=== PATIENT | female | born 1955 | race Caucasian/White ===

== ENCOUNTER → 2017-01-08 | Outpatient (CLI) | payer OTHER ==
--- NOTE | 2017-01-09 09:38 | MRI ---
EXAM DESCRIPTION: MRI left knee CLINICAL HISTORY: Left knee pain. Medial knee pain. No known injury COMPARISON: None. TECHNIQUE: Multiplanar, multisequence MR images of the left knee FINDINGS: Diffuse edema throughout the medial femoral condyle. High-grade chondrosis, grade 3 and grade 4 over the majority of the weightbearing condyle. Fluid in contact with the subchondral cortex along the mid to anterior joint over at least 14 x 8 mm. There is subtle irregularity of the subchondral cortex with minimal trabecular condensation over a small region about 8-9 mm. The appearance is compatible with stress/insufficiency fracture versus early sequela of osteonecrosis. Greater degree of marrow edema than typically seen from grade 4 chondrosis alone. Chondral thinning over the tibia without full-thickness defect or subchondral marrow abnormality. No medial meniscal tear A small defect in the superior articular surface mid body lateral meniscus seen on coronal PD fat sat image 19. Remainder of the lateral meniscus normal. A chondral fissure over the posterior weightbearing lateral condyle over about 5 x 2 mm. No subchondral marrow abnormality. Lateral tibial cartilage intact Chondral thinning and irregularity along the lower apex and lateral facet patella and the apex of the lower trochlea and medial facet without full-thickness defect or subchondral marrow abnormality Thickening of the anterior cruciate ligament with intraligamentous signal. Small osseous cysts at the tibial attachment. Appearance consistent with prior remote low-grade interstitial partial tear and intraligamentous ganglion formation. PCL, MCL and fibular collateral ligament are intact Biceps femoris, popliteus and iliotibial band tendons are normal. Patellar and quadriceps tendons and tendons of the posterior medial knee are intact Moderate joint effusion. No intra-articular loose body IMPRESSION: Abnormal medial femoral condyle with chondrosis and subchondral bony abnormality as well as diffuse marrow edema. The appearance is compatible with sequela of a small segment of osteonecrosis versus stress/insufficiency subcortical fracture Small defect/tear superior articular surface mid body lateral meniscus Electronically signed by: Zechariah Harris MD 01/09/2017 9:38 AM CDT
== END | disposition home or self-care (01) ==
LOC: MRI 08:46
PROVIDERS: ATTEND Family Medicine
DX: M25.562 Pain in left knee (principal)

== ENCOUNTER → 2017-01-20 | Outpatient (CLI) | payer OTHER ==
--- NOTE | 2017-01-20 10:38 | RAD ---
EXAM DESCRIPTION: Pelvis CLINICAL HISTORY: 61 years, Female, HIP PAIN COMPARISON: None. FINDINGS: Pelvic ring is intact. Mild degenerative narrowing of both hips more on the left. Sacroiliac degenerative change present on the left. IMPRESSION: Mild degenerative change in both hips, more on the left. No fracture. Electronically signed by: Guy Chan MD 01/20/2017 10:38 AM CDT
== END | disposition home or self-care (01) ==
LOC: RAD 07:43
PROVIDERS: ATTEND Orthopaedic Surgery
DX: M25.552 Pain in left hip (principal)

== ENCOUNTER 2017-10-12 13:03 | Emergency (ER) | payer BC, OTHER ==
--- NOTE | 2017-10-12 13:47 | ED.PDOC ---
History of Present Illness - General Stated Complaint: ABDOMINAL PAIN Time Seen by Provider: 10/12/17 13:44 Source: patient Additional Information: 62 YEAR OLD HERE WITH COMPLAINTS OF EPIGASTRIC PAIN LAST 3 DAYS INTERMITTANT SHE HAS LOSS OF APATITE NO NAUSEA VOMITING OR DIARRHEA SHE HAS BEEN TREATED BY HER PCP FOR RESPIRATORY SYMPTOMS LAS T WEEK - History of Present Illness Timing/Duration: intermittent Severity: moderate Worsening Factors: nothing Associated Symptoms: denies symptoms, loss of appetite Allergies/Adverse Reactions: Allergies NO KNOWN ALLERGY Allergy (Verified 12/14/15 09:29) Home Medications: Ambulatory Orders Dapagliflozin-Metformin HCl [Xigduo Xr 10-1000 mg] 1 tab PO DAILY 12/15/15 Review of Systems - Review of Systems Constitutional: States: no symptoms reported EENTM: States: no symptoms reported Respiratory: States: no symptoms reported Cardiology: States: no symptoms reported Gastrointestinal/Abdominal: States: see HPI Genitourinary: States: no symptoms reported Musculoskeletal: States: no symptoms reported Skin: States: no symptoms reported Neurological: States: no symptoms reported Endocrine: States: no symptoms reported Past Medical History (General) - Patient Medical History Hx Congestive Heart Failure: No Hx Diabetes: Yes - FSBS 137 AT 1300 Family Medical History - Family History Mother Family History: Unknown Living Status: Unknown Physical Exam - Physical Exam General Appearance: Alert, Comfortable Eye Exam: bilateral normal Ears, Nose, Throat: hearing grossly normal, normal ENT inspection, normal pharynx Neck: non-tender, full range of motion, supple Respiratory: chest non-tender, lungs clear, normal breath sounds, no respiratory distress, no accessory muscle use Cardiovascular/Chest: normal peripheral pulses, regular rate, rhythm, no edema, no gallop, no JVD, no murmur Peripheral Pulses: radial,right: 2+, radial,left: 2+, femoral,right: 2+, femoral ,left: 2+ Gastrointestinal/Abdominal: normal bowel sounds, non tender, soft, no organomegaly, no pulsatile mass Back Exam: normal inspection, no CVA tenderness Neurologic: flask pusher II-XII nml as tested, no motor/sensory deficits, alert Departure - Departure Clinical Impression: Abdominal pain, Pancreatitis Time of Disposition: 16:32 Disposition: Transfer to Hospital Condition: Good Referrals: Zechariah Branch MD [Primary Care Provider] - 1-2 Weeks Home Medications: Ambulatory Orders Dapagliflozin-Metformin HCl [Xigduo Xr 10-1000 mg] 1 tab PO DAILY 12/15/15 Transfer to Outside Facility - Transfer Information Accepting Provider:: [facility] DR ERICKSON Accepting Facility: [facility] - ACUTE PANCREATITIS TYPE II DM ACUTE KIDENY INJURY Reason for Transfer: required specialist not available - ACUTE PANCREATITIS ACUTE KIDNEY INJURY TYPE II DM
[2017-10-12] MEDS ORDERED: LIDOCAINE HCL 2% (MOUTH-THROAT) 15 ML UD ONE (14:09)
[2017-10-12] MEDS ORDERED: ALUM & MAG HYDROX-SIMETHICONE 30 ML UD ONE (14:09)
[2017-10-12] MEDS: ALUM & MAG HYDROX-SIMETHICONE 30 ML, LIDOCAINE VISCOUS 2% 15 ML PO ONE ×2 (14:12)
[2017-10-12] MEDS: SUCRALFATE 1 GM/10 ML 1 GM UD PO ONE (14:13)
[2017-10-12] MEDS: fentaNYL CITRATE INJ 50 MCG/ML AMP IV ONE ×2 (15:15→16:57)
[2017-10-12] MEDS ORDERED: SODIUM CHLORIDE 0.9% 50ML 50 ML ONE (15:16)
[2017-10-12] MEDS ORDERED: PROMETHAZINE HCL INJ 25 MG/ML VIAL ONE (15:16)
[2017-10-12] MEDS: PROMETHAZINE HCL INJ 12.5 MG in SODIUM CHLORIDE 0.9% 50ML 50 ML IVPB ONE (15:18)
[2017-10-12] MEDS: SODIUM CHLORIDE 0.9% 1000ML 1,000 ML IVS ONE (16:46)
[2017-10-12 17:04] VITALS: BP 164/93; TEMP 98; O2SAT 96
== END 2017-10-12 17:03 | disposition short-term general hospital (02) ==
LOC: ER 13:03
DX: K85.90 Acute pancreatitis without necrosis or infection, unspecified (principal); E11.9 Type 2 diabetes mellitus without complications
CPT/HCPCS: 36415; 80053; 83690; 85025; A4216; J2550; J3010; J7030

== ENCOUNTER → 2017-10-21 | Outpatient (CLI) | payer BC, OTHER | LOC: GMAM 16:45 | PROVIDERS: ATTEND Family Medicine | DX: K85.90 Acute pancreatitis without necrosis or infection, unspecified (principal) ==

== ENCOUNTER → 2017-10-24 | Outpatient (CLI) | payer BC, OTHER | LOC: GMAM 10:00 | PROVIDERS: ATTEND Family Medicine | DX: K85.90 Acute pancreatitis without necrosis or infection, unspecified (principal) ==

== ENCOUNTER → 2017-10-31 | Outpatient (CLI) | payer BC, OTHER | LOC: GMAM 10:00 | PROVIDERS: ATTEND Family Medicine | DX: K85.90 Acute pancreatitis without necrosis or infection, unspecified (principal) ==

== ENCOUNTER → 2017-11-17 | Outpatient (CLI) | payer BC, OTHER | LOC: GMAM 14:32 | PROVIDERS: ATTEND Family Medicine | DX: D64.9 Anemia, unspecified (principal); K85.90 Acute pancreatitis without necrosis or infection, unspecified ==

== ENCOUNTER → 2017-11-17 | Outpatient (CLI) | payer BC, OTHER | LOC: GMAM 17:51 | PROVIDERS: ATTEND Family Medicine | DX: N39.0 Urinary tract infection, site not specified (principal) ==

== ENCOUNTER → 2017-11-18 | Outpatient (CLI) | payer BC, OTHER ==
--- NOTE | 2017-11-20 16:58 | MAM ---
EXAM DESCRIPTION: 3D Screening BILATERAL : Digital Mammography. CLINICAL HISTORY: 62 years Female SCREENING . No complaints. Sister and mother with breast cancer. Postmenopausal. No HRT. COMPARISON: 2-D digital screening bilateral study on 04/05/2015. No prior reports available. TECHNIQUE: Bilateral CC and MLO projection full-field images, 3-D tomosynthesis digital mammographic technique. Also bilateral synthesized CC/ MLO full-field images. CAD not utilized. FINDINGS: The breast parenchymal density pattern is: Scattered areas of fibroglandular density. No skin thickening or nipple retraction bilateral axillary lymph nodes. Surgical clips in the left axilla. Bilateral solitary microcalcifications. No focal, stellate mass or density, focal asymmetry , and no suspicious microcalcifications bilaterally. Stable mammograms compared to prior study, taking into account differences in mammographic technique IMPRESSION: BI-RADS CATEGORY: 2 - BENIGN FINDINGS. FOLLOW UP: Routine digital bilateral screening, one year interval from October 2017. Written communication explaining the IMPRESSION and follow-up, will be mailed to the patient and referring health care provider. According to the [employer], yearly mammograms are recommended starting at age 40 and continuing as long as a woman is in good health. Any breast change noted on a breast self-exam should be reported promptly to the patient's healthcare provider. Breast MRI is recommended for women with an approximately 20-25% or greater lifetime risk of breast cancer, including women with a strong family history of breast or ovarian cancer and women who have been treated for Hodgkin's disease. A negative mammographic report should not delay tissue diagnosis in patients with significant clinical history or physical findings. Extremely dense breast tissue limits the sensitivity of digital mammography. Electronically signed by: Chris Cortez MD 11/20/2017 4:56 PM CDT
== END ==
LOC: MAMMO 14:50
PROVIDERS: ATTEND Family Medicine
DX: Z12.31 Encounter for screening mammogram for malignant neoplasm of breast (principal)

== ENCOUNTER → 2017-12-15 | Outpatient (CLI) | payer BC, OTHER | LOC: GMAM 17:20 | PROVIDERS: ATTEND Family Medicine | DX: K85.90 Acute pancreatitis without necrosis or infection, unspecified (principal) ==

== ENCOUNTER → 2018-01-12 | Outpatient (CLI) | payer BC, OTHER | LOC: GMAM 14:51 | PROVIDERS: ATTEND Family Medicine | DX: K85.90 Acute pancreatitis without necrosis or infection, unspecified (principal) ==

== ENCOUNTER → 2018-10-02 | Outpatient (CLI) | payer BC, OTHER | LOC: LAB.O 13:16 | PROVIDERS: ATTEND Internal Medicine Gastroenterology | DX: D50.0 Iron deficiency anemia secondary to blood loss (chronic) (principal) ==

== ENCOUNTER → 2018-10-21 | Outpatient (CLI) | payer BC, OTHER | LOC: GMAM 14:44 | PROVIDERS: ATTEND Family Medicine | DX: E53.8 Deficiency of other specified B group vitamins (principal); R53.83 Other fatigue; E55.9 Vitamin D deficiency, unspecified ==

== ENCOUNTER 2018-10-23 05:34 | Day surgery (SDC) | payer BC, OTHER ==
[2018-10-23] MEDS ORDERED: LIDOCAINE 1% 10 ML VIAL INJ ONE (07:00)
[2018-10-23] MEDS ORDERED: PROPOFOL 200 MG/20 ML VIAL IV ONE (07:00)
[2018-10-23] MEDS ORDERED: LACTATED RINGERS 1,000 ML ONE (07:02)
--- NOTE | 2018-10-23 10:20 | OP ---
DATE OF PROCEDURE: 10/23/18 PREPROCEDURE DIAGNOSIS: 1. Anemia. 2. Diarrhea. 3. Change in bowel pattern. POSTPROCEDURE DIAGNOSIS: 1. Erythematous gastropathy. 2. Non-bleeding internal hemorrhoids. PROCEDURE: 1. Esophagogastroduodenoscopy. 2. Colonoscopy. SURGEON: Julio Crabtree MD COMPLICATIONS: No immediate complications. SEDATION: The patient was sedated via IV propofol by the Anesthesia Department. CONSENT: Prior to the procedure, risks, benefits and alternatives to the therapy were discussed with the patient. The risks included bleeding, infection, perforation and . The patient agreed to the procedure and signed a consent. PREPROCEDURE ANESTHESIA ASSESSMENT: An examination revealed no contraindication to sedation. Airway examination demonstrated a Mallampati class type 2, ASA grade assessment type 2. Throughout the procedure, the patient's blood pressure and additional vitals were closely monitored. EGD: The patient was placed in the left lateral decubitus position. Bite block was placed in the mouth. The Olympus endoscope was introduced through the oropharynx, esophagus, stomach and the second portion of the duodenum. The scope was retracted and the mucosa visualized. The entirety of the exam was performed under direct visualization. Retroflexion was performed in the stomach. The patient tolerated the procedure well. FINDINGS: 1. The esophagus was normal. 2. Diffuse erythema was found throughout the stomach, predominantly in the antrum. Biopsies were obtained with cold forceps. 3. Otherwise, normal stomach. 4. Normal duodenum. COLONOSCOPY: The patient was placed TURNED AROUND. The rectal examination was within normal limits. The Olympus colonoscope was passed in the anus, rectum, traversing the colon to the level of the cecum as identified by the appendiceal orifice. The scope was retracted and the mucosa was visualized. The entirety of the exam was performed under direct visualization. Retroflexion was performed in the rectum. Preparation quality was good. The withdrawal time was greater than 6 minutes. The patient tolerated the procedure well. FINDINGS: 1. Non-bleeding medium sized internal hemorrhoids were found in retroflexion. 2. No evidence of lesions, inflammation, ulcerations were found throughout the colonic exam. Random colonic biopsies with the cold forceps from the ascending and descending colon were obtained to rule out microscopic colitis. RECOMMENDATION: 1. Return the patient home. 2. Resume previous diet. 3. Obtain fecal occult blood testing of the stool. 4. Return to my office in the next 2 weeks. 5. The findings were discussed with the patient and family members. 6. Followup with pathology results. #[id number] [facility]
[2018-10-23 10:40] VITALS: BP 126/51; TEMP 96.1; O2SAT 96
== END 2018-10-23 11:00 | disposition home or self-care (01) ==
LOC: AMB 05:34
PROVIDERS: ATTEND Internal Medicine Gastroenterology
DX: D64.9 Anemia, unspecified (principal); R19.7 Diarrhea, unspecified; K29.00 Acute gastritis without bleeding; K29.50 Unspecified chronic gastritis without bleeding; B96.81 Helicobacter pylori [H. pylori] as the cause of diseases classified elsewhere; K64.8 Other hemorrhoids; I12.9 Hypertensive chronic kidney disease with stage 1 through stage 4 chronic kidney disease, or unspecified chronic kidney disease; E11.22 Type 2 diabetes mellitus with diabetic chronic kidney disease; N18.9 Chronic kidney disease, unspecified; E66.9 Obesity, unspecified; Z68.29 Body mass index [BMI] 29.0-29.9, adult; Z79.84 Long term (current) use of oral hypoglycemic drugs; Z79.899 Other long term (current) drug therapy
CPT/HCPCS: 00813; 43239; 45378; 82948; J3490; J7120

== ENCOUNTER 2019-03-21 18:33 | Inpatient (IN) | payer BC, OTHER ==
[2019-03-21] MEDS ORDERED: NITROGLYCERIN 0.4 MG 25 EA TAB SL ONE (18:48)
[2019-03-21] MEDS ORDERED: ASPIRIN TABLET 325 MG TAB PO ONE (18:48)
[2019-03-21] MEDS ORDERED: ONDANSETRON INJ 4 MG/2 ML VIAL IV ONE (18:48)
--- NOTE | 2019-03-21 19:15 | RAD ---
EXAM DESCRIPTION: Chest,1 View CLINICAL HISTORY: 63 years Female chest pain COMPARISON: None TECHNIQUE: AP view of the chest was obtained. FINDINGS: Cardiac size is within normal limits. Central vessels are not increased. No infiltrates or effusions seen. No consolidation. No pneumothorax. IMPRESSION: No active disease. Electronically signed by: Shawna Keyes MD 03/21/2019 7:13 PM CDT
[2019-03-21] MEDS ORDERED: cefTRIAXone SODIUM 1 GM in SODIUM CHL 0.9% 50ML MIN-BAG+ 50 ML IVPB ONE (19:57)
[2019-03-21] MEDS ORDERED: cefTRIAXone SODIUM 1 GM VIAL ONE (20:00)
[2019-03-21] MEDS ORDERED: SODIUM CHL 0.9% 50ML MIN-BAG+ 50 ML IVPB ONE (20:00)
[2019-03-21] MEDS ORDERED: SODIUM CHLORIDE 0.9% 1000ML 1,000 ML IVS ONE (20:05)
--- NOTE | 2019-03-21 20:22 | ED.PDOC ---
History of Present Illness - General Chief Complaint: Chest Pain/NV Stated Complaint: CP, headache, fever Time Seen by Provider: 03/21/19 18:51 Source: patient Exam Limitations: no limitations - History of Present Illness Initial Comments: Patient presents with chest discomfort for three days. She says she can't describe it as pain but that it feels unusual from the right side to the left. It is intermittent. No previous episodes. The patient also complains of wanting to stay in bed all day and general malaise. No previous episodes. Has IDDM. No other complaints. Timing/Duration: other - 3 days Severity: moderate Worsening Factors: nothing Associated Symptoms: other - as in HPI Allergies/Adverse Reactions: Allergies NO KNOWN ALLERGY Allergy (Verified 03/21/19 19:37) Home Medications: Ambulatory Orders Amlodipine Besylate 5 mg PO DAILY 10/21/18 Calcium Carb 500Mg-Vitamin D [Oscal 500mg w/D] 2 ea PO DAILY 10/21/18 Metoprolol Tartrate 50 mg PO BID 10/21/18 Multiple Vitamins W/ Minerals [Multivitamin Women] 1 tab PO DAILY 10/21/18 Sitagliptin Phosphate [Januvia] 50 mg PO DAILY 10/21/18 Review of Systems - Review of Systems Constitutional: States: see HPI Respiratory: States: no symptoms reported Cardiology: States: see HPI Gastrointestinal/Abdominal: States: no symptoms reported Genitourinary: States: no symptoms reported Musculoskeletal: States: no symptoms reported Skin: States: no symptoms reported Neurological: States: no symptoms reported Endocrine: States: no symptoms reported Hematologic/Lymphatic: States: no symptoms reported Past Medical History (General) - Patient Medical History Hx Stroke: No Hx of COPD: No Hx Congestive Heart Failure: No Hx Hypertension: Yes Hx Diabetes: Yes Hx Cancer: No Hx MRSA: No Surgical History: cholecystectomy, Hysterectomy - Vaccination History Hx Tetanus, Diphtheria Vaccination: No Hx Influenza Vaccination: No Hx Pneumococcal Vaccination: No - Social History Hx Tobacco Use: No Hx Alcohol Use: No Hx Substance Use: No Hx Substance Use Treatment: No Hx Depression: No - Female History Patient is a Female of Child Bearing Age (10 -59 yrs old): No Patient : No Family Medical History - Family History Mother Family History: Unknown Living Status: Unknown Physical Exam - Physical Exam General Appearance: Alert Ears, Nose, Throat: normal ENT inspection Neck: non-tender, full range of motion, supple Respiratory: lungs clear, normal breath sounds Cardiovascular/Chest: normal peripheral pulses, regular rate, rhythm Gastrointestinal/Abdominal: normal bowel sounds, non tender, soft Back Exam: normal inspection, no CVA tenderness Extremity: normal range of motion, non-tender, normal inspection Neurologic: no motor/sensory deficits, alert, normal mood/affect, oriented x 3 Skin Exam: normal color Lymphatic: no adenopathy Progress - Progress Progress: 03/21/19 20:23 Laboratory Tests 03/21/19 03/21/19 03/21/19 18:48 19:29 20:05 WBC 12.1 H RBC 4.25 Hgb 11.9 L Hct 35.5 L MCV 83.5 MCH 27.9 MCHC 33.4 RDW 13.9 Plt Count 186 MPV 8.6 Absolute Neuts (auto) 10.50 H Absolute Lymphs (auto) 0.50 L Absolute Monos (auto) 1.00 H Absolute Eos (auto) 0.00 Absolute Basos (auto) 0.10 Neutrophils % 87.4 H Lymphocytes % 4.0 L Monocytes % 8.0 Eosinophils % 0.1 L Basophils % 0.5 PT 11.1 H INR 1.11 PTT (SP) 28.1 Sodium 133 L Potassium 3.8 Chloride 98 L Carbon Dioxide 23 Anion Gap 15.8 BUN 24 H Creatinine 1.58 H BUN/Creatinine Ratio 15.2 Random Glucose 217 H Serum Osmolality 277.0 Lactic Acid 1.4 Calcium 9.1 Magnesium 1.8 Creatine Kinase 67 CK-MB (CK-2) 1.4 CK-MB (CK-2) % Not Reportable Troponin I < 0.02 B-Natriuretic Peptide 95.0 Urine Color Yellow Urine Appearance Sl cloudy Urine pH 5.5 Ur Specific [place] >= 1.030 Urine Protein 100 H Urine Glucose (UA) Negative Urine Ketones Trace Urine Blood Moderate H Urine Nitrite Negative Urine Bilirubin Small H Urine Urobilinogen 0.2 Ur Leukocyte Esterase Trace H Urine RBC 3-5 H Urine WBC Tntc H Ur Epithelial Cells 1-3 Urine Bacteria 4+ H UA indicates UTI.WBC 12.1. Temperature 101.8. EKG showed NSR with no ST changes nor T wave inversions. No LBBB. Troponin negative. Lactic acid 1.2. Patient given Rocephin 1 gram IV x one and NS one liter IV bolus x one. Admitted for urosepsis by Sam Cox. Departure - Departure Clinical Impression: UTI (urinary tract infection), Sepsis Disposition: Admit Patient Condition: Fair Departure Forms: ED Discharge - Pt. Copy, Patient Portal Self Enrollment Diet: diabetic diet Activity: increase activity as tolerated Referrals: Zechariah Branch MD [Primary Care Provider] - 1-2 Weeks Home Medications: Ambulatory Orders Amlodipine Besylate 5 mg PO DAILY 10/21/18 Calcium Carb 500Mg-Vitamin D [Oscal 500mg w/D] 2 ea PO DAILY 10/21/18 Metoprolol Tartrate 50 mg PO BID 10/21/18 Multiple Vitamins W/ Minerals [Multivitamin Women] 1 tab PO DAILY 10/21/18 Sitagliptin Phosphate [Januvia] 50 mg PO DAILY 10/21/18 Critical Care Note - Critical Care Note Total Time (mins): 90
--- NOTE | 2019-03-21 21:31 | HP ---
SUPERVISING PHYSICIAN: Ector Brewster MD CHIEF COMPLAINT: Chest pain, fever. HISTORY OF PRESENT ILLNESS: Ms. Milian is a 63-year-old, female patient who has a history of diabetes. She presented to the Emergency Room today after she had been having chest pain for the last three days. She noted the chest pains were more on the left side in her shoulder. They are intermittent and she had overall generalized malaise and just not feeling well. She has no previous history of myocardial infarctions. She notes the pain in her shoulder is reproducible and does go away when she takes Tylenol. Her initial vital signs on admission to the Emergency Room showed a temperature of 101.3, but hemodynamically stable, oxygen saturation 95% on room air. Laboratory studies showed a leukocytosis of 12,100 with a left shift. Chemistries showed a mild hyponatremia with some renal insufficiency with creatinine 1.58. Lactic acid normal at 1.4. Initial troponin was less than 0.02. Her EKG in the Emergency Room showed a normal sinus rhythm without any ST or T-wave changes concerning for ischemia or acute injury. A urinalysis showed a urinary tract infection with microscopic revealing 3 to 5 RBCs, too numerous to count WBCs and 4+ bacteria. She was started on Rocephin and fluids. She is now going to be admitted for concern for sepsis secondary to underlying urinary tract infection. PAST MEDICAL HISTORY: 1. Diabetes mellitus, type 2. 2. Hypertension. PAST SURGICAL HISTORY: 1. Cholecystectomy. 2. Hysterectomy. 3. Surgeries on her left fingers. 4. Tonsillectomy and adenoidectomy. MEDICATIONS: 1. Januvia 50 mg daily. 2. Multivitamin 1 tablet daily. 3. Metoprolol 50 mg b.i.d. 4. Os-Tono 500 mg with vitamin D 2 tablets daily. 5. Amlodipine 5 mg daily. ALLERGIES: NO KNOWN DRUG ALLERGIES. FAMILY HISTORY: Father is , history unknown. Mother in her 60s of metastatic breast cancer. She has two siblings that both have diabetes and hypertension. She has three children who are all healthy. SOCIAL HISTORY: The patient lives in [place]. She is . She has never smoked or utilized tobacco in any form, nor does she utilize alcohol or illicit drugs. REVIEW OF SYSTEMS: CONSTITUTIONAL: General malaise with fever as noted in history of present illness. HEENT: Negative for sore throats, earaches, nasal congestion, vision changes. RESPIRATORY: Denies shortness of breath, wheezing or coughing. CARDIOVASCULAR: As noted in history of present illness, left sided chest pain, intermittent with shoulder pain that is reproducible for the last three days. GASTROINTESTINAL: Negative for nausea, vomiting, diarrhea, constipation or abdominal pain. GENITOURINARY: Negative for dysuria, hematuria, polyuria. MUSCULOSKELETAL: As noted in history of present illness, left shoulder pain. SKIN: Negative for rashes, lesions or unexplained changes. NEUROLOGIC: Negative for seizures, ataxia, headaches, vision changes, syncopal episodes or other focal neurologic deficits. HEMATOLOGICAL: Denies easy bruising, unexplained bleeding or transfusion reaction. PHYSICAL EXAMINATION: VITAL SIGNS: Temperature in the Emergency Room was 101.3. Pulse 80. Blood pressure 123/67. Respirations 20. Saturation 95% on room air. Admission weight 77.3 kg. GENERAL: The patient appears to be resting comfortably in no acute obvious distress. She is alert. HEENT: Tympanic membranes clear bilaterally. Oropharynx is pink with dry mucous membranes. NECK: Supple, nontender with full range of motion. No jugular venous distention noted. RESPIRATORY: Lungs clear to auscultation bilaterally without any rhonchi, wheezes or rales. CARDIOVASCULAR: Regular rate and rhythm without any appreciable murmurs, gallops, or rubs. ABDOMEN: Soft, nontender. Positive bowel sounds. EXTREMITIES: There is no cyanosis, clubbing or edema. NEUROLOGIC: The patient is alert and oriented times three. Cranial nerves II- XII are grossly intact. Facial features are symmetrical. Extraocular movements are within normal limits. There is no nystagmus noted. SKIN: [place], warm and dry. LABORATORY: White count shows leukocytosis of 12,100, hemoglobin 11.9, hematocrit 35.5, platelet count 186,000. Differential did show a left shift. Coagulation studies showed normal PT, PTT. Chemistries showed a hyponatremia at 133. Anion gap and carbon dioxide were normal. BUN 24, creatinine bumped up to 1.58. Glucose 217. Lactic acid 1.4. Calcium normal at 9.1. Magnesium normal at 1.8. Troponin less than 0.02. BNP normal at 95. Urinalysis showed 100 protein, moderate amount of blood, small amount of bilirubin, trace leukocyte esterase with RBCs 3 to 5, WBCs too numerous to count, epithelials 1 to 3 and 4+ bacteria. MICROBIOLOGY: Urine culture pending. RADIOLOGY: Chest x-ray in the Emergency Room, single-view, per radiologic interpretation showed no active disease, in infiltrates or effusions, no consolidations or pneumothorax. ASSESSMENT: 1. Sepsis secondary to urinary tract infection with the patient having a fever and leukocytosis on admission. 2. Chest pain with troponin and EKGs without any acute findings, likely musculoskeletal in origin, needing further right upper extremity. 3. Electrolyte imbalance with hyponatremia. 4. Urinary tract infection with early sepsis. 5. Renal insufficiency, like prerenal azotemia with some mild dehydration. 6. History of hypertension. 7. Diabetes mellitus, type 2, on oral therapy. PLAN: The patient is going to be admitted to the Medical/Surgical Floor for further treatment and evaluation to include continuation of antibiotics for underlying sepsis and urinary tract infection. We will continue with cardiac workup to further rule out acute coronary syndrome. She will be on sliding insulin per protocol. She will be on DVT prophylaxis per protocol. We will resume her home medications once those have been updated and verified. We will anticipate her length of stay to be 2 to 3 days. We will start her on some IV fluids in efforts to correct the dehydration, renal insufficiency and hyponatremia. We will follow her urine cultures and treat as needed. Until the patient can transition to outpatient management, we will continue to monitor and treat as needed. #[id number] [facility]
[2019-03-21] MEDS ORDERED: ONDANSETRON INJ 4 MG/2 ML VIAL IV PRN (22:36)
[2019-03-21] MEDS ORDERED: ALUM & MAG HYDROX-SIMETHICONE 30 ML UD PO PRN (22:36)
[2019-03-21] MEDS ORDERED: SODIUM CHLORIDE 0.9% (FLUSH) 10 ML SYG IV PRN (22:36)
[2019-03-21] MEDS ORDERED: MAGNESIUM HYDROXIDE 30 ML UD PO PRN (22:36)
[2019-03-21] MEDS ORDERED: DEXTROSE 50% 25 GM/50 ML SYG IV PRN (22:38)
[2019-03-21] MEDS ORDERED: GLUCAGON INJ 1 MG VIAL SUBCU PRN (22:38)
[2019-03-21] MEDS: KCL 20 MEQ/NS 1,000 ML IVS PRN (22:59)
[2019-03-21] MEDS ORDERED: IV SET AND CAP CHANGE INJ INJ SCH (23:00)
[2019-03-22] MEDS: OMEPRAZOLE CAP 20 MG CAP PO SCH (06:05)
[2019-03-22] MEDS: INSULIN LISPRO 100 UNITS/ML PEN SUBCU SCH ×4 (07:22→21:02)
[2019-03-22] MEDS ORDERED: cefTRIAXone SODIUM 1 GM VIAL ONE (08:33)
[2019-03-22] MEDS ORDERED: METOPROLOL TARTRATE 25 MG TAB ONE (08:37)
[2019-03-22] MEDS: ENOXAPARIN SODIUM 40 MG/0.4 ML SYG SUBCU SCH (08:41)
[2019-03-22] MEDS: cefTRIAXone SODIUM 1 GM in SODIUM CHL 0.9% 50ML MIN-BAG+ 50 ML IVPB SCH (08:42)
[2019-03-22] MEDS: amLODIPine BESYLATE 5 MG TAB PO SCH (08:42)
[2019-03-22] MEDS: SITagliptin 50 MG TAB PO SCH (08:42)
[2019-03-22] MEDS: METOPROLOL TARTRATE 50 MG TAB PO SCH ×2 (08:46→21:04)
[2019-03-22] MEDS: ACETAMINOPHEN 325 MG TAB PO PRN ×2 (08:47→18:27)
[2019-03-22] MEDS: CALCIUM CARBONATE-VITAMIN D 500 MG TAB PO SCH (08:52)
[2019-03-22] MEDS: MULTIPLE VITAMINS W/ MINERALS 1 EA TAB PO SCH (10:30)
[2019-03-22] MEDS ORDERED: INSULIN DETEMIR 100 UNITS/ML PEN SUBCU ONE (11:48)
[2019-03-22] MEDS: KCL 20 MEQ/NS 1,000 ML IVS PRN (12:31)
--- NOTE | 2019-03-22 21:44 | PN ---
DATE: 03/22/19 SUPERVISING PHYSICIAN: Rush Sol M.D. SUBJECTIVE: The patient still is tired and exhausted. She has not had any fever overnight. She has had no nausea or vomiting. No reported chest pains since admission. OBJECTIVE: VITAL SIGNS: T max 99.5, pulse 78, blood pressure 127/85, respirations 18, satting 96% on room air. Weight 77.3 kg. GENERAL: The patient is resting comfortably. She does appear to be acutely ill but not in any acute distress. She is alert. CHEST: Lungs were clear to auscultation bilaterally without any notable rhonchi, wheezing or rales. HEART: Regular rate and rhythm. ABDOMEN: Soft, non-tender. Positive bowel sounds. EXTREMITIES: Without any clubbing, cyanosis or edema. NEUROLOGIC: She is alert and oriented times three. LABORATORY: White count now has normalized to 9.0, hemoglobin 11.0, hematocrit 32.3, platelet count 170,000. Differential shows a left shift. Chemistries show slightly improved sodium at 134, BUN is down to 21 and creatinine now is down to 1.37. Blood sugars range between 157 and 202. Lactic acid was 1.4 last night. Calcium 8.5. She had 1 more troponin this morning that was 0.02. MICROBIOLOGY: Urine culture is pending. RADIOLOGY: No additional radiographic studies. ASSESSMENT: 1. Sepsis secondary to urinary tract infection with the patient having a fever and leukocytosis and reported somnolence at home prior to admission. 2. Chest pain with negative troponins and EKGs likely due to musculoskeletal strain of the left shoulder with no signs of acute coronary syndrome. 3. Electrolyte imbalance with a persistent hyponatremia. 4. Urinary tract infection with early sepsis. Cultures pending. 5. Renal insufficiency with prerenal azotemia showing some slight improvement with fluids with review of the patient's showing baseline creatinine to be around 1.5. 6. History of hypertension, currently stable. 7. Diabetes mellitus, type 2, on oral therapy. PLAN: Will continue with current plan of care at this point with treating urinary tract infection with Rocephin. Will await culture results to target antibiotic therapy as appropriate. Will repeat labs in the morning. She remains on insulin sliding scale and DVT prophylaxis per protocol. I resumed her home medications. Will anticipate probably discharging tomorrow. Will continue with IV fluids to help correct the elevated creatinine. Until we can transition her to outpatient management will continue to monitor and treat as needed. [facility][id number] [facility]
[2019-03-23] MEDS: KCL 20 MEQ/NS 1,000 ML IVS PRN (00:35)
[2019-03-23] MEDS: OMEPRAZOLE CAP 20 MG CAP PO SCH (06:01)
[2019-03-23] MEDS: INSULIN LISPRO 100 UNITS/ML PEN SUBCU SCH ×4 (07:09→21:46)
[2019-03-23] MEDS ORDERED: SODIUM CHL 0.9% 50ML MIN-BAG+ 50 ML IVPB ONE (08:03)
[2019-03-23] MEDS ORDERED: cefTRIAXone SODIUM 1 GM VIAL ONE (08:04)
[2019-03-23] MEDS: SITagliptin 50 MG TAB PO SCH (08:52)
[2019-03-23] MEDS: METOPROLOL TARTRATE 50 MG TAB PO SCH ×2 (08:52→21:46)
[2019-03-23] MEDS: MULTIPLE VITAMINS W/ MINERALS 1 EA TAB PO SCH (08:52)
[2019-03-23] MEDS: ENOXAPARIN SODIUM 40 MG/0.4 ML SYG SUBCU SCH (08:52)
[2019-03-23] MEDS: cefTRIAXone SODIUM 1 GM in SODIUM CHL 0.9% 50ML MIN-BAG+ 50 ML IVPB SCH (08:52)
[2019-03-23] MEDS: CALCIUM CARBONATE-VITAMIN D 500 MG TAB PO SCH (08:52)
[2019-03-23] MEDS: amLODIPine BESYLATE 5 MG TAB PO SCH (08:52)
[2019-03-23] MEDS: ACETAMINOPHEN 325 MG TAB PO PRN ×2 (08:57→21:51)
[2019-03-23] MEDS ORDERED: SODIUM CHLORIDE 0.9% (FLUSH) 10 ML SYG IV ONE (11:54)
--- NOTE | 2019-03-23 17:34 | PN ---
DATE: 03/23/19 SUPERVISING PHYSICIAN: Rush Sol M.D. SUBJECTIVE: The patient says that she still feels exhausted. She is sleeping a lot. She has not had any complaints of nausea or vomiting. No more chest pain since admission. She has been afebrile. OBJECTIVE: VITAL SIGNS: Temperature 98.5, pulse 75, blood pressure 123/71, respirations 16, satting 98% on room air. Weight is 79.0 kg. GENERAL: The patient is resting comfortably. She does appear to be acutely ill but not in any acute distress. She is alert. CHEST: Lungs were clear to auscultation bilaterally without any notable rhonchi, wheezing or rales. HEART: Regular rate and rhythm. ABDOMEN: Soft, non-tender. Positive bowel sounds. EXTREMITIES: Without any clubbing, cyanosis or edema. NEUROLOGIC: She is alert and oriented times three. LABORATORY STUDIES: Labs today show normal electrolytes with potassium 4.0, BUN 21, creatinine is down to 1.37. Blood sugars are ranging between 109 and 245, calcium 8.4. MICROBIOLOGY: Urine culture is pending. RADIOLOGY: No additional radiographic studies today. ASSESSMENT: 1. Sepsis secondary to urinary tract infection with the patient having a fever and leukocytosis and reported somnolence at home prior to admission. 2. Chest pain with negative troponins and EKGs likely due to musculoskeletal strain of the left shoulder with no signs of acute coronary syndrome. 3. Electrolyte imbalance with a persistent hyponatremia. 4. Urinary tract infection with early sepsis. Cultures pending. 5. Renal insufficiency with prerenal azotemia showing some slight improvement with fluids with review of the patient's showing baseline creatinine to be around 1.5. 6. History of hypertension, currently stable. 7. Diabetes mellitus, type 2, on oral therapy. PLAN: The patient is going to be continued on antibiotic therapy awaiting final culture results. Will go ahead and saline lock her today as her electrolytes have normalized. She is taking adequate p.o. fluid. Labs are showing to be stable. Will hold off on those. Anticipate hopefully discharging tomorrow. She remains on insulin sliding scale and DVT prophylaxis. Until we can transfer to outpatient management will continue to monitor and treat as needed. [facility][id number] [facility]
[2019-03-24] MEDS: OMEPRAZOLE CAP 20 MG CAP PO SCH (06:29)
[2019-03-24 06:36] VITALS: O2SAT 98
[2019-03-24] MEDS: INSULIN LISPRO 100 UNITS/ML PEN SUBCU SCH (07:10)
[2019-03-24] MEDS ORDERED: SODIUM CHL 0.9% 50ML MIN-BAG+ 50 ML IVPB ONE (09:01)
[2019-03-24] MEDS ORDERED: cefTRIAXone SODIUM 1 GM VIAL ONE (09:03)
[2019-03-24] MEDS: ENOXAPARIN SODIUM 40 MG/0.4 ML SYG SUBCU SCH (09:17)
[2019-03-24] MEDS: SITagliptin 50 MG TAB PO SCH (09:17)
[2019-03-24] MEDS: CALCIUM CARBONATE-VITAMIN D 500 MG TAB PO SCH (09:17)
[2019-03-24] MEDS: amLODIPine BESYLATE 5 MG TAB PO SCH (09:17)
[2019-03-24] MEDS: MULTIPLE VITAMINS W/ MINERALS 1 EA TAB PO SCH (09:17)
[2019-03-24] MEDS: cefTRIAXone SODIUM 1 GM in SODIUM CHL 0.9% 50ML MIN-BAG+ 50 ML IVPB SCH (09:17)
[2019-03-24] MEDS: METOPROLOL TARTRATE 50 MG TAB PO SCH (09:17)
--- NOTE | 2019-03-24 09:58 | DS ---
SUPERVISING PHYSICIAN: Rush Sol MD DISCHARGE DIAGNOSIS: 1. Sepsis secondary to urinary tract infection with the patient having a fever and leukocytosis and reported somnolence at home prior to admission. 2. Chest pain with negative troponins and EKGs most likely due to musculoskeletal strain of the left shoulder with no signs of acute coronary syndrome. 3. Electrolyte imbalance with a persistent hyponatremia. 4. Urinary tract infection with early sepsis, cultures pending. 5. Renal insufficiency with prerenal azotemia showing some mild improvement with fluids with review of the patient's baseline creatinine to be around 1.5. 6. History of hypertension, currently stable. 7. Diabetes mellitus, type 2, on oral therapy. HISTORY OF PRESENT ILLNESS: This is a 63-year-old female patient who has a history of diabetes. She came to the Emergency Room today with complaints of having chest pain for three days. The chest pains were more on the left side and in her shoulder. They were intermittent and she had overall generalized malaise and just not feeling well. There was no previous history of myocardial infarctions. The pain in her shoulder was reproducible and went away when she takes Tylenol. Her initial vital signs on admission to the Emergency Room showed a temperature of 101.3, but otherwise hemodynamically stable with oxygen saturation 95% on room air. Laboratory studies showed a leukocytosis of 12,100 with a left shift. Chemistries showed a mild hyponatremia with some renal insufficiency with creatinine 1.58. Lactic acid normal at 1.4. Initial troponin was less than 0.02. Her EKG in the Emergency Room showed a normal sinus rhythm without any ST or T-wave changes that would be concerning for ischemia or acute injury. A urinalysis showed a urinary tract infection with microscopic revealing 3 to 5 RBCs, too numerous to count WBCs and 4+ bacteria. She was started on fluids, culture was done on her urine and she was also given Rocephin. She was admitted to the hospital for sepsis secondary to underlying urinary tract infection. HOSPITAL COURSE: The patient was admitted to the Floor and continued on her antibiotics. She was also put on blood sugar checks a.c. and h.s. with sliding scale Humalog insulin. DVT prophylaxis was initiated per protocol. Her home medications were re-started. She received some IV fluids for dehydration. She progressively improved. Her vital signs remained stable. She remained afebrile. Today, she will be discharged home in stable condition. LABORATORY: Her sodium normalized at 136. Her other electrolytes were basically within normal limits with potassium 4, chloride 107, carbon dioxide 21. BUN 21, creatinine improved to 1.37. WBCs have normalized to 9 with hemoglobin 11 and hematocrit 32.3. She continues to have a left shift on differential. Her urine culture is still pending. RADIOLOGY: Chest x-ray from admission showed no active disease. DISCHARGE PLAN: The patient will be discharged home in stable condition. She is to resume her previous diet and increase her activity as tolerated. She has a followup appointment with her primary care physician, Dr. Alma Rosa Barnch, on 04/01/19 at 10:45 AM. I sent her 7 additional days of cefdinir to complete her antibiotic regimen. I have recommended she also get a probiotic. We will try to monitor her cultures over the next few days, but it is recommended that when she had followup appointment with her primary care physician that her urine culture be reviewed. She is to return to the hospital or call Dr. Branch's office for any problems or complications. DISCHARGE MEDICATIONS: 1. Amlodipine. 2. Metoprolol. 3. Calcium/vitamin D. 4. Sitagliptin. 5. Multivitamins. 6. Cefdinir. [facility][id number] [facility]
[2019-03-24 10:25] VITALS: BP 128/78; TEMP 98.2
== END 2019-03-24 10:35 | disposition home or self-care (01) | DRG 872 ==
LOC: ER 18:33 → MS 21:31 → OBSVTOIN 21:31
PROVIDERS: ADMIT Nurse Practitioner Family; ATTEND Nurse Practitioner Acute Care
DX: A41.9 Sepsis, unspecified organism (principal); N39.0 Urinary tract infection, site not specified; E87.1 Hypo-osmolality and hyponatremia; S46.912A Strain of unspecified muscle, fascia and tendon at shoulder and upper arm level, left arm, initial encounter; X58.XXXA Exposure to other specified factors, initial encounter; Y92.9 Unspecified place or not applicable; N28.9 Disorder of kidney and ureter, unspecified; I10 Essential (primary) hypertension; E11.9 Type 2 diabetes mellitus without complications; E86.0 Dehydration; Z79.84 Long term (current) use of oral hypoglycemic drugs; Z79.899 Other long term (current) drug therapy

== ENCOUNTER → 2019-04-12 | Outpatient (CLI) | payer BC, OTHER | LOC: GMAM 18:56 | PROVIDERS: ATTEND Family Medicine | DX: D64.9 Anemia, unspecified (principal); D72.829 Elevated white blood cell count, unspecified ==

== ENCOUNTER → 2019-07-22 | Outpatient (CLI) | payer BC, OTHER ==
--- NOTE | 2019-07-22 15:26 | MRI ---
Study: MRI of the Right Knee. Indication: RT KNEE PAIN Technique: Multiplanar, multi sequence MRI of the right knee was obtained without intravenous contrast. Comparison: None. Findings: Mild mucoid degeneration ACL and PCL without acute tear. Both the MCL and FCL are slightly thickened and lax with mild increased internal PD signal. In addition, there is mild thickening of the distal IT band. These findings can be seen in the setting of the osteoarthritic knee. No acute tear defect of the medial or lateral collateral structures. Degenerative signal posterior horn and body medial meniscus with scattered free edge fraying. Scattered degenerative signal changes lateral meniscus and most pronounced anterior horn/root. Areas of grade 2 and 3 chondral thinning medial and lateral knee compartments. Tendinosis quadriceps tendon insertion. Patella normally located. Patchy grade 2 and 3 chondrosis throughout the patellofemoral compartment with minimal grade 4 chondrosis and subchondral marrow change at the apex Moderate size knee effusion. No acute fracture. Mild subcortical cystic change midline tibial plateau. Small posterior capsular ganglion measures 20 mm Impression: Degenerative changes medial meniscus and lateral meniscus without tear. Mucoid degeneration ACL and PCL. Tricompartmental areas of grade 2-3 chondrosis but with mild grade 4 chondrosis of the patellar apex. Moderate size knee effusion. Electronically signed by: Alex Amado MD 07/22/2019 3:24 PM SECURITIES RESEARCH ANALYST
== END ==
LOC: MRI 09:00
PROVIDERS: ATTEND Family Medicine
DX: M23.300 Other meniscus derangements, unspecified lateral meniscus, right knee (principal); M23.306 Other meniscus derangements, unspecified meniscus, right knee; M23.8X1 Other internal derangements of right knee; M94.261 Chondromalacia, right knee

== ENCOUNTER 2019-10-08 21:49 | Emergency (ER) | payer BC, OTHER, MEDICARE ==
[2019-10-08] MEDS ORDERED: SODIUM CHLORIDE 0.9% (FLUSH) 10 ML SYG IV PRN (22:10)
[2019-10-08] MEDS ORDERED: cefTRIAXone SODIUM 2 GM in SODIUM CHL 0.9% 100ML MINI-BAG 100 ML IVPB ONE (22:10)
[2019-10-08] MEDS ORDERED: SODIUM CHLORIDE 0.9% 1000ML 2,500 ML IVS ONE (22:10)
[2019-10-08] MEDS ORDERED: ACETAMINOPHEN 500 MG TAB PO ONE (22:10)
--- NOTE | 2019-10-08 22:16 | ED.PDOC ---
History of Present Illness - General Chief Complaint: Fever Stated Complaint: fever, vomiting Time Seen by Provider: 10/08/19 22:06 Source: patient, RN notes reviewed, Vital Signs reviewed, family Exam Limitations: no limitations - History of Present Illness Initial Comments: ,Patient presenting with for fever, cough, vomiting onset yesterday. Symptoms are progressively worsened over the last 24 hours. Patient was reluctant to come to the emergency room, but finally convinced her to come to the emergency room tonight. She reports fever of 102 today. Nonpr oductive cough. Sore throat, mild headache, body aches. No flu contacts. No sick contacts. Patient is diabetic. Timing/Duration: 24 hours, getting worse Associated Symptoms: cough, headaches, malaise, nausea/vomiting Allergies/Adverse Reactions: Allergies NO KNOWN ALLERGY Allergy (Verified 03/21/19 19:37) Home Medications: Ambulatory Orders RX: Amlodipine Besylate 5 mg PO DAILY 10/21/18 RX: Calcium Carb 500Mg-Vitamin D [Oscal 500 + D] 2 ea PO DAILY 10/21/18 RX: Metoprolol Tartrate 50 mg PO BID 10/21/18 RX: Multiple Vitamins W/ Minerals [Multivitamin Women] 1 tab PO DAILY 10/21/18 RX: Sitagliptin Phosphate [Januvia] 50 mg PO DAILY 10/21/18 RX: Cefdinir 300 mg PO BID #14 capsule 03/24/19 Amoxicillin & Pot Clavulanate [Augmentin Tab] 875 mg PO BID #20 tab 10/09/19 Benzonatate Perles [Tessalon Perles] 100 - 200 mg PO Q6HR #20 cap 10/09/19 Ondansetron Odt [Zofran ODT] 8 mg PO Q8HR #15 tab 10/09/19 Review of Systems - Review of Systems Constitutional: States: chills, fever EENTM: States: nose congestion, throat pain. Denies: ear pain, ear discharge, mouth pain Respiratory: States: cough. Denies: short of breath, wheezing Cardiology: Denies: chest pain, edema, palpitations Gastrointestinal/Abdominal: States: nausea, vomiting. Denies: abdominal pain, constipation, diarrhea Musculoskeletal: States: muscle pain - Generalized myalgias. Denies: joint pain, muscle stiffness, neck pain Skin: States: lesions - Swelling, erythema to right ring finger Neurological: States: headache. Denies: anxiety, paresthesia, weakness Endocrine: Denies: increased thirst, increased urine Hematologic/Lymphatic: Denies: blood clots, easy bleeding All other Systems: Reviewed and Negative Past Medical History (General) - Patient Medical History Hx Seizures: No Hx Stroke: No Hx Dementia: No Hx Asthma: No Hx of COPD: No Hx Cardiac Disorders: No Hx Congestive Heart Failure: No Hx Pacemaker: No Hx Hypertension: No Hx Thyroid Disease: No Hx Diabetes: Yes Hx Gastroesophageal Reflux: No Hx Renal Disease: No Hx Cancer: No Hx of HIV: No Hx Hepatitis C: No Hx MRSA: No Surgical History: cholecystectomy - Vaccination History Hx Tetanus, Diphtheria Vaccination: No Hx Influenza Vaccination: No Hx Pneumococcal Vaccination: No - Social History Hx Tobacco Use: No Hx Chewing Tobacco Use: No Hx Alcohol Use: No Hx Substance Use: No Hx Substance Use Treatment: No Hx Depression: No Feels Threatened In Home Enviroment: No Feels Threatened In a Relationship: No Hx Physical Abuse: No Hx Emotional Abuse: No Hx Suspected Abuse: No - Female History Patient is a Female of Child Bearing Age (10 -59 yrs old): No Patient : No Family Medical History - Family History Mother Family History: Unknown Living Status: Hx Family Cancer: Yes Father Family History: Unknown Living Status: Unknown Physical Exam - Physical Exam General Appearance: Alert, No apparent distress, Obese Ears, Nose, Throat: normal ENT inspection, normal pharynx Neck: full range of motion, supple, normal inspection Respiratory: lungs clear, normal breath sounds, no respiratory distress Cardiovascular/Chest: normal peripheral pulses, regular rate, rhythm, no edema Back Exam: normal inspection, no CVA tenderness, no vertebral tenderness Extremity: non-tender, normal inspection, no pedal edema, no calf tenderness Neurologic: no motor/sensory deficits, alert, normal mood/affect, oriented x 3 Skin Exam: normal color, other - Paronychia to the right index finger Progress - Progress Progress: 10/08/19 22:20 Patient febrile, heart rate greater than 90. Meets 2 sirs criteria at this time, concern for possible sepsis. Will initiate sepsis order set with 30 mL/kg bolus. Rocephin ordered. Will follow serial lactates after fluid bolus. - Results/Orders Results/Orders: 10/08/19 22:10 Sodium Chloride 0.9% (Flush) [Saline Flush Syringe] 10 ml IV PRN PRN Sodium Chloride 0.9% 1000ML [Ns 1000 ml] 2,500 ml IVS ONCE 10/08/19 22:11 IV Care:Saline Lock per Protoc QSHIFT Telemetry .ONCE EKG Stat Pulse Ox Stat URINALYSIS Stat 10/08/19 22:21 BLOOD CULTURE Stat 10/09/19 00:15 LACTIC ACID Q2H Laboratory Results WBC 13.4 K/mm3 (4.8-10.8) H 10/08/19 22:21 RBC 3.75 M/mm3 (4.20-5.40) L 10/08/19 22:21 Hgb 10.2 gm/dL (12.0-16.0) L 10/08/19 22:21 Hct 30.7 % (36.0-47.0) L 10/08/19 22:21 MCV 81.9 fl (81.0-99.0) 10/08/19 22:21 MCH 27.3 pg (27.0-31.0) 10/08/19 22:21 MCHC 33.3 g/dL (33.0-37.0) 10/08/19 22:21 RDW 14.0 % (11.5-14.5) 10/08/19 22:21 Plt Count 173 K/mm3 (130-400) 10/08/19 22:21 MPV 8.8 fl (7.40-10.4) 10/08/19 22:21 Absolute Neuts (auto) 12.30 K/uL (1.8-6.8) H 10/08/19 22:21 Absolute Lymphs (auto) 0.30 K/uL (1.0-3.4) L 10/08/19 22:21 Absolute Monos (auto) 0.60 K/uL (0.2-0.8) 10/08/19 22:21 Absolute Eos (auto) 0.00 K/uL (0.0-0.4) 10/08/19 22:21 Absolute Basos (auto) 0.10 K/uL (0.0-0.1) 10/08/19 22:21 Neutrophils % 92.1 % (42.0-78.0) H 10/08/19 22:21 Lymphocytes % 2.6 % (20.0-50.0) L 10/08/19 22:21 Monocytes % 4.7 % (2.0-9.0) 10/08/19 22:21 Eosinophils % 0.0 % (1.0-5.0) L 10/08/19 22:21 Basophils % 0.6 % (0.0-2.0) 10/08/19 22:21 PT 11.5 SECONDS (9.0-10.9) H 10/08/19 22:21 INR 1.16 (0.9-1.15) H 10/08/19 22:21 PTT (SP) 26.9 SECONDS (21.8-31.6) 10/08/19 22:21 Sodium 137 mmol/L (135-145) 10/08/19 22:21 Potassium 4.1 mmol/L (3.6-5.0) 10/08/19 22:21 Chloride 103 mmol/L (101-111) 10/08/19 22:21 Carbon Dioxide 25 mmol/L (21-31) 10/08/19 22:21 Anion Gap 13.1 (12-18) 10/08/19 22:21 BUN 30 mg/dL (7-18) H 10/08/19 22:21 Creatinine 1.70 mg/dL (0.6-1.3) H 10/08/19 22:21 BUN/Creatinine Ratio 17.6 (10-20) 10/08/19 22:21 Random Glucose 259 mg/dL (70-105) H 10/08/19 22:21 Serum Osmolality 288.9 mOsm/L (275-295) 10/08/19 22:21 Lactic Acid 0.9 mmol/L (0.5-2.2) 10/08/19 22:21 Calcium 9.7 mg/dL (8.4-10.2) 10/08/19 22:21 Total Bilirubin 1.7 mg/dL (0.2-1.0) H 10/08/19 22:21 AST 15 IU/L (10-42) 10/08/19 22:21 ALT 14 IU/L (10-60) 10/08/19 22:21 Alkaline Phosphatase 76 IU/L (42-121) 10/08/19 22:21 Creatine Kinase 61 IU/L (26-140) 10/08/19 22:21 CK-MB (CK-2) 0.6 ng/mL (0.0-4.4) 10/08/19 22:21 CK-MB (CK-2) % Not Reportable 10/08/19 22:21 Troponin I 0.02 ng/mL (0.01-0.05) 10/08/19 22:21 Serum Total Protein 7.1 gm/dL (6.4-8.2) 10/08/19 22:21 Albumin 3.6 g/dl (3.2-5.5) 10/08/19 22:21 Globulin 3.5 gm/dL (2.3-3.5) 10/08/19 22: Albumin/Globulin Ratio 1.0 (1.1-1.9) L 10/08/19 22:21 Chest x-ray reviewed personally by me.Agree with radiologist interpretation. No infiltrates. The foreign body overlying the left chest wall is a screw from the patient's reading glasses that were not removed prior to the chest x-ray. - EKG/XRAY/CT EKG: Sinus, no ST T wave changes - Normal sinus rhythm, rate of 95, left axis, normal intervals, no ST segment elevations or depressions - Consult/PCP Time Called: 01:18 - Discussed with Sam Cox, nurse practitioner. Does not feel patient meets criteria for inpatient or observation at this time given no O2 requirements. He recommends patient follow-up with Dr. Branch in walk-in clinic later today for recheck. Procedures - Incision and Drainage #1 Site: Paronychia right ring finger Procedure and Prep: betadine prep, sterile drapes applied, pus drained Blade Size: 11 Procedure Comments: Performed under digital block with 1% lidocaine.Landmarks identified. Incremental injection. Aspirated prior to injection, no blood. Good anesthesia achieved. Single stab incision made to the ulnar aspect of the right ring finger, purulent material expressed. Departure - Departure Clinical Impression: Fever in adult, Bronchitis, Paronychia Disposition: Discharge to Home or Self Care Condition: Fair Departure Forms: ED Discharge - Pt. Copy, Patient Portal Self Enrollment Instructions: DI for Fever (Symptom) -- Adult, Acute Bronchitis, Adult (DC) Referrals: Zechariah Branch MD [Primary Care Provider] - 1-2 Days (Go to walk in clinic later today before 5 pm) Prescriptions: Benzonatate Perles [Tessalon Perles] 100 - 200 mg PO Q6HR #20 cap Ondansetron Odt [Zofran ODT] 8 mg PO Q8HR #15 tab Amoxicillin & Pot Clavulanate [Augmentin Tab] 875 mg PO BID #20 tab Home Medications: Ambulatory Orders RX: Amlodipine Besylate 5 mg PO DAILY 10/21/18 RX: Calcium Carb 500Mg-Vitamin D [Oscal 500 + D] 2 ea PO DAILY 10/21/18 RX: Metoprolol Tartrate 50 mg PO BID 10/21/18 RX: Multiple Vitamins W/ Minerals [Multivitamin Women] 1 tab PO DAILY 10/21/18 RX: Sitagliptin Phosphate [Januvia] 50 mg PO DAILY 10/21/18 RX: Cefdinir 300 mg PO BID #14 capsule 03/24/19 Amoxicillin & Pot Clavulanate [Augmentin Tab] 875 mg PO BID #20 tab 10/09/19 Benzonatate Perles [Tessalon Perles] 100 - 200 mg PO Q6HR #20 cap 10/09/19 Ondansetron Odt [Zofran ODT] 8 mg PO Q8HR #15 tab 10/09/19 Additional Instructions: Follow-up with Dr. Branch in walk-in clinic later today. Return to the emergency room immediately for worsening shortness of breath, intractable vomiting, changes in mental status, or any other concerns.
[2019-10-08] MEDS ORDERED: SODIUM CHL 0.9% 100ML MINI-BAG 100 ML IVPB ONE (22:23)
--- NOTE | 2019-10-08 22:53 | RAD ---
EXAM DESCRIPTION: Chest,1 View CLINICAL HISTORY:64 years Female, fever, unclear origin Comparison: Chest radiograph dated 03/21/2019 FINDINGS/IMPRESSION: No focal lung consolidation. No pleural effusion. No pneumothorax. Cardiomediastinal silhouette is unchanged. Mild vascular congestion. No acute osseous abnormality. Radiopaque foreign body projecting over the left hilum. Left axillary postsurgical changes. Electronically signed by: Manas Bain DO 10/08/2019 10:52 PM [facility]
[2019-10-08] MEDS ORDERED: LIDOCAINE 1% 10 ML VIAL INJ ONE (23:26)
[2019-10-09 02:04] VITALS: BP 132/68
[2019-10-09 02:18] VITALS: TEMP 98.6; O2SAT 96
== END 2019-10-09 02:19 | disposition home or self-care (01) ==
LOC: ER 21:49
DX: R50.9 Fever, unspecified (principal); J40 Bronchitis, not specified as acute or chronic; L03.011 Cellulitis of right finger; R11.2 Nausea with vomiting, unspecified; R51 Headache; E11.9 Type 2 diabetes mellitus without complications; Z79.899 Other long term (current) drug therapy
CPT/HCPCS: 71045; 80053; 81001; 82550; 82553; 83605; 84484; 85025; 85610; 85730; 87040; 87502; 93005; J0696; J7030; J7050

== ENCOUNTER → 2020-06-29 | Outpatient (CLI) | payer BC, OTHER | LOC: GMAM 14:45 | PROVIDERS: ATTEND Family Medicine | DX: D50.9 Iron deficiency anemia, unspecified (principal); D53.9 Nutritional anemia, unspecified ==

== ENCOUNTER → 2020-09-22 | Outpatient (CLI) | payer BC, OTHER, MEDICARE | LOC: GMAM 12:57 | PROVIDERS: ATTEND Family Medicine | DX: E53.8 Deficiency of other specified B group vitamins (principal); I10 Essential (primary) hypertension; D50.9 Iron deficiency anemia, unspecified; E55.9 Vitamin D deficiency, unspecified; E11.9 Type 2 diabetes mellitus without complications; E78.2 Mixed hyperlipidemia ==